=== PATIENT | female | born 1975 | race African-American/Black ===

== ENCOUNTER 2023-03-07 02:45 | Day surgery (SDC) | payer OTHER ==
[2023-03-07 03:01] VITALS: BMI 26.6
[2023-03-07] MEDS ORDERED: SODIUM CHLORIDE 0.9% 500 ML INFUS.BAG IV ONE (03:27)
[2023-03-07] MEDS ORDERED: ACETAMINOPHEN 1000 MG/100 ML BAG IVPB ONE (03:27)
[2023-03-07] MEDS ORDERED: FAMOTIDINE 20 MG/50 ML IVPB 20 MG/50 ML MG IVPB ONE ×2 (03:27→03:42)
[2023-03-07] MEDS ORDERED: ONDANSETRON 4 MG/2 ML VIAL IVPUSH ONE (03:28)
[2023-03-07] MEDS ORDERED: ACETAMINOPHEN INJECTION 100 ML IVPB ONE ×2 (03:42→17:50)
[2023-03-07] MEDS ORDERED: ONDANSETRON 4 MG/2 ML VIAL ONE (03:42)
[2023-03-07 04:11] LABS: BASO % 1.3 % (0-2.0); EOS % 2.8 % (0-4.5); HEMATOCRIT 37.4 % (32.4-45.2); HEMOGLOBIN 12.8 GM/dL (10.7-15.3); LYMPH % 23.7 % (8-40); MCH 28.2 pg (25.7-33.7); MCHC 34.3 g/dl (32.0-36.0); MEAN CELL VOLUME 82.3 fl (80-96); MEAN PLT VOLUME 7.6 fl (7.5-11.1); MONO % 8.6 % (3.8-10.2); NEUT % 63.6 % (42.8-82.8); PLATELET COUNT 275 10^3/uL (134-434); RBC 4.55 M/mm3 (3.60-5.2); RDW 13.3 % (11.6-15.6); WHITE BLOOD COUNT 8.1 K/mm3 (4.0-10.0)
[2023-03-07 04:26] LABS: INR 1.08 (0.83-1.09); PROTHROMBIN TIME (PATIENT) 12.5 SEC (9.7-13.0)
[2023-03-07 04:39] LABS: POTASSIUM 3.7 mmol/L (3.5-5.1)
[2023-03-07 04:41] LABS: BLOOD UREA NITROGEN 14.9 mg/dL (7-18); CALCIUM 9.4 mg/dL (8.5-10.1)
[2023-03-07 04:42] LABS: ALBUMIN 3.8 g/dl (3.4-5.0)
[2023-03-07 04:47] LABS: BILIRUBIN,TOTAL 0.3 mg/dL (0.2-1); TOT PROT 7.3 g/dl (6.4-8.2)
[2023-03-07] MEDS ORDERED: KETOROLAC TROMETHAMINE 15 MG/ML VIAL IVPUSH ONE (05:05)
[2023-03-07] MEDS ORDERED: KETOROLAC TROMETHAMINE 15 MG/ML VIAL ONE (05:13)
[2023-03-07 05:18] LABS: URINE APPEARANCE CLEAR; URINE BILIRUBIN NEGATIVE (NEGATIVE); URINE COLOR YELLOW; URINE GLUCOSE (UA) NEGATIVE (NEGATIVE); URINE KETONE NEGATIVE (NEGATIVE); URINE LEUK ESTERASE NEGATIVE (NEGATIVE); URINE NITRITE NEGATIVE (NEGATIVE); URINE PROTEIN NEGATIVE (NEGATIVE); URINE UROBILINOGEN 0.2 mg/dL (0.2-1.0)
[2023-03-07] MEDS ORDERED: LABETALOL HCL 200 MG TABLET (FP) PO STA (07:02)
[2023-03-07] MEDS ORDERED: KETOROLAC TROMETHAMINE 15 MG/ML VIAL IVPUSH PRN (07:19)
[2023-03-07] MEDS: ACETAMINOPHEN 1000 MG/100 ML BAG IVPB PRN ×2 (07:47→12:46)
[2023-03-07] MEDS ORDERED: MINERAL OIL ENEMA 133 ML ENEMA RC ONE (12:15)
[2023-03-07] MEDS ORDERED: BUPIVACAINE HCL/PF 0.5% (5MG/ML) 10 ML VIAL ONE (16:33)
[2023-03-07] MEDS ORDERED: MIDAZOLAM HCL 2 MG/2 ML SINGLE DOSE VIAL ONE (17:33)
[2023-03-07] MEDS ORDERED: FENTANYL CITRATE/PF 50 MCG/ML VIAL ONE ×2 (17:34→18:01)
[2023-03-07] MEDS ORDERED: PROPOFOL 20 ML ONE ×2 (17:34→18:59)
[2023-03-07] MEDS ORDERED: ROCURONIUM BROMIDE 50 MG/5 ML SYRINGE ONE (17:35)
[2023-03-07] MEDS ORDERED: SUCCINYLCHOLINE CHLORIDE 200 MG/10 ML SYRINGE ONE (17:43)
[2023-03-07] MEDS ORDERED: SCOPOLAMINE HYDROBROMIDE 1 PATCH PATCH.TD72 ONE (17:50)
[2023-03-07] MEDS ORDERED: ceFAZolin SODIUM 1 GM VIAL ONE (18:03)
[2023-03-07] MEDS ORDERED: ceFAZolin SODIUM 1 GM VIAL IVPB ONE (18:05)
[2023-03-07] MEDS ORDERED: NEOSTIGMINE METHYLSULFATE 0.5 MG/1 ML - 10 ML MDV ONE (18:29)
[2023-03-07] MEDS ORDERED: PROMETHAZINE HCL 25 MG/1 ML VIAL IVPB ONE (19:13)
[2023-03-07] MEDS ORDERED: LACTATED RINGERS SOLUTION 1,000 ML IV SCH (19:15)
[2023-03-07] MEDS ORDERED: ACETAMINOPHEN 325 MG TABLET (FP) PO PRN (19:59)
[2023-03-07] MEDS: IBUPROFEN 800 MG/8 ML IJ IVPB SCH ×2 (20:00→20:34)
[2023-03-07] MEDS ORDERED: ALBUTEROL SO4 HFA INHALER IH PRN (20:01)
[2023-03-07] MEDS ORDERED: PROMETHAZINE HCL 25 MG/1 ML VIAL ONE (20:14)
[2023-03-07] MEDS: LABETALOL HCL 200 MG TABLET (FP) PO PRN (21:14)
[2023-03-07 21:20] VITALS: RESP 18
[2023-03-08] MEDS: IBUPROFEN 800 MG/8 ML IJ IVPB SCH ×2 (04:20→11:21)
[2023-03-08 08:15] VITALS: PULSE 67; TEMP 98.8
[2023-03-08 09:38] VITALS: BP 156/77
[2023-03-08] MEDS ORDERED: SIMETHICONE 80 MG TAB.CHEW (FP) PO PRN (10:00)
[2023-03-08] MEDS: LABETALOL HCL 200 MG TABLET (FP) PO PRN (10:32)
== END 2023-03-08 13:35 | disposition home or self-care (01) ==
LOC: JER 02:45 → JERBED 05:42 → UNDOADMIN 05:42 → J3W 06:48 → JERBED 06:48 → JASUSAT 15:08 → J3W 15:26 → JASUSAT 03-08 13:35
PROVIDERS: ATTEND Obstetrics & Gynecology
PROC: 0UB14ZZ Excision of Left Ovary, Percutaneous Endoscopic Approach (ICD-10-PCS; 2023-03-07)
PROC: 0UB04ZZ Excision of Right Ovary, Percutaneous Endoscopic Approach (ICD-10-PCS; principal; 2023-03-07 11:30)
DX: N83.12 Corpus luteum cyst of left ovary (principal); N83.11 Corpus luteum cyst of right ovary
CPT/HCPCS: 0241U-QW; 74177-TC; 76830-TC; 76856-TC; 80053; 81003; 84484; 85025; 85610; 85730; 86850; 86900; 86901; 87086; 88305-TC; 93005; 93010; 94760; 99285-25; Q9967

== ENCOUNTER 2023-08-09 19:43 | Emergency (ER) | payer OTHER ==
[2023-08-09 19:52] VITALS: TEMP 98; BMI 25.7
[2023-08-09 20:40] LABS: BASO % 0.3 % (0-2.0); HEMATOCRIT 41.8 % (32.4-45.2); HEMOGLOBIN 14.1 GM/dL (10.7-15.3); LYMPH % 30.3 % (8-40); MCH 27.7 pg (25.7-33.7); MCHC 33.7 g/dl (32.0-36.0); MEAN CELL VOLUME 82.1 fl (80-96); MEAN PLT VOLUME 7.2 fl (7.5-11.1); MONO % 9.5 % (3.8-10.2); NEUT % 56.9 % (42.8-82.8); PLATELET COUNT 385 10^3/uL (134-434); RDW 13.5 % (11.6-15.6); WHITE BLOOD COUNT 9.3 K/mm3 (4.0-10.0)
[2023-08-09 21:01] LABS: POTASSIUM 4.4 mmol/L (3.5-5.1)
[2023-08-09 21:03] LABS: CALCIUM 9.1 mg/dL (8.5-10.1)
[2023-08-09 21:04] LABS: BLOOD UREA NITROGEN 23.7 mg/dL (7-18); MAGNESIUM 2.3 mg/dL (1.8-2.4)
[2023-08-09 21:07] LABS: CREATININE 1.1 mg/dL (0.55-1.3)
[2023-08-09 21:08] LABS: TOT PROT 8.1 g/dl (6.4-8.2)
[2023-08-09 21:09] LABS: BILIRUBIN,TOTAL 0.4 mg/dL (0.2-1)
[2023-08-09 21:12] LABS: N-TERMINAL BNP 21.3 pg/ml (5-125)
[2023-08-09 23:10] VITALS: BP 131/78; PULSE 71; RESP 12
== END 2023-08-10 00:08 | disposition home or self-care (01) ==
LOC: JER 19:43
DX: R06.02 Shortness of breath (principal); R05.9 Cough, unspecified; M79.89 Other specified soft tissue disorders
CPT/HCPCS: 0241U-QW; 36415; 71046-TC-FY; 71275-TC; 80053; 83735; 83880; 84484; 85025; 86850; 86900; 86901; 93005; 93010; 93970-TC; 99285-25; Q9967